=== PATIENT | female | born 1980 | race Caucasian/White ===

== ENCOUNTER 2019-07-29 07:46 | Emergency (ER) | payer MEDICAID ==
[~2019-07-29] VITALS: Ht 167.6 cm; Wt 99.8 kg
[2019-07-29 07:56] VITALS: BP_SYST 117
--- NOTE | 2019-07-29 08:05 | NUR ---
Patient to ER bed 6 to gown for evaluation. Side rails up. Report given to AYAAN Richmond.
--- NOTE | 2019-07-29 08:08 | NUR ---
ER at bedside examining patient.
--- NOTE | 2019-07-29 08:10 | NUR ---
Patient arrived in the ED c/o nausea, dizziness, headaches, backaches. Denied any chest pain or shortness of breath. Denied any fevers, vomiting, or chills. Patient is alert and oriented x4, respirations even and unlabored, speaking in full sentences, ambulating with a steady gait. VSS, pain level 6/10. Informed of wait time. Instructed to notify ED staff for any changes in condition or worsening of symptoms. Patient verbalized understanding.
--- NOTE | 2019-07-29 08:15 | NUR ---
Patient ambulated to the bathroom with a steady gait. Urine specimen collected.
--- NOTE | 2019-07-29 08:20 | NUR ---
radiation therapy technician at bedside collecting blood specimen as ordered by Dr. Saleh. Patient tolerated the procedure well.
--- NOTE | 2019-07-29 08:44 | NUR ---
X-ray done at bedside as ordered by Dr. Saleh. Patient tolerated the procedure well.
[2019-07-29] MEDS ORDERED: KETOROLAC TROMETHAMINE 60 MG/2 ML VIAL IM ONE (08:45)
[2019-07-29 08:50] LABS: CALCIUM 8.6 mg/dL (8.4-11.0); CREATININE 0.78 mg/dL (0.55-1.30); POTASSIUM 3.8 mmol/L (3.5-5.1)
--- NOTE | 2019-07-29 08:50 | NUR ---
Administered Toradol IM as ordered by Dr. Saleh. Patient tolerated the medication well. See eMAR for details.
--- NOTE | 2019-07-29 08:56 | NUR ---
ECG done at bedside as ordered by Dr. Saleh. Patient tolerated the procedure well. ER Physician given copy of EKG for review.
[2019-07-29 08:58] LABS: BASOPHILS % (AUTO) 0.2 % (0.0-2.0); EOSINOPHILS % (AUTO) 0.7 % (0.0-4.0); HEMATOCRIT 42.1 % (36-48); HEMOGLOBIN 14.4 g/dL (12.0-16.0); LYMPHOCYTES # (AUTO) 0.3 K/uL (1.0-5.5); LYMPHOCYTES % (AUTO) 4.4 % (20.5-51.5); MEAN CORPUSCULAR HEMOGLOBIN 31 pg (27-31); MEAN CORPUSCULAR HGB CONC 34 % (32-36); MEAN CORPUSCULAR VOLUME 91 fL (79.0-98.0); MONOCYTES # (AUTO) 0.3 K/uL (0.0-1.0); MONOCYTES % (AUTO) 4.3 % (1.7-9.3); NEUTROPHILS # (AUTO) 6.4 K/uL (1.8-7.7); NEUTROPHILS % (AUTO) 90.4 % (40.0-70.0); PLATELET COUNT (AUTO) 119 K/uL (130-430); RED BLOOD CELL COUNT(AUTO) 4.65 MIL/uL (4.2-6.2); RED CELL DISTRIBUTION WIDTH 12.6 % (9.0-15.0); WHITE BLOOD COUNT (AUTO) 7.1 K/uL (4.8-10.8)
[2019-07-29 10:02] VITALS: BP_SYST 116
--- NOTE | 2019-07-29 10:03 | NUR ---
Patient given written and verbal discharge instructions and verbalizes understanding. ER MD discussed with patient the results and treatment provided. Patient in stable condition. ID arm band removed. Rx of Naproxen given. Patient educated on pain management and to follow up with PMD. Pain Scale 3/10. Opportunity for questions provided and answered. Medication side effect fact sheet provided.
== END 2019-07-29 10:02 | disposition home or self-care (01) ==
LOC: SED 07:46
DX: R55 Syncope and collapse (principal)
CPT/HCPCS: 36415; 71045; 74018; 80048; 81025; 85025; 93005; 96372; 99285; J1885